=== PATIENT | male | born 1950 | race Caucasian/White ===

== ENCOUNTER 2017-08-23 09:36 | Day surgery (SDC) | payer MEDICARE, BC | END 2017-08-23 12:45 | disposition home or self-care (01) | LOC: ORSCMMR 09:36 | PROVIDERS: Internal Medicine Gastroenterology | PROC: 0DBM8ZX Excision of Descending Colon, Via Natural or Artificial Opening Endoscopic, Diagnostic (ICD-10-PCS; principal; 2017-08-23 11:15) | PROC: 0DBK8ZX Excision of Ascending Colon, Via Natural or Artificial Opening Endoscopic, Diagnostic (ICD-10-PCS; principal; 2017-08-23 11:15) | DX: Z12.11 Encounter for screening for malignant neoplasm of colon (principal); D12.2 Benign neoplasm of ascending colon; D12.4 Benign neoplasm of descending colon; K64.8 Other hemorrhoids; E78.00 Pure hypercholesterolemia, unspecified; I10 Essential (primary) hypertension; E11.9 Type 2 diabetes mellitus without complications; Z79.899 Other long term (current) drug therapy | CPT/HCPCS: 82947; 88305; J7120 ==

== ENCOUNTER → 2020-07-25 | Outpatient (CLI) | payer MEDICARE, BC ==
[~2020-07-25] MED LIST: ACYC400; AMIT25; AMLO10; ASPIR 8181 M1; DOXA2; FINA5; GLIP5; IMIP25; LOSARTAN-HCTZ1 EACH; METF500; PREG75; Simvastatin20 MG; TAMS.4ER
[2020-07-26 09:23] LABS: C DIFFICILE DNA NEGATIVE (Negative)
[2020-08-03 06:11] LABS: NOROVIRUS GI Negative (Negative); NOROVIRUS GII Negative (Negative)
== END | disposition home or self-care (01) ==
LOC: LAB 10:00 → LAB SHORT 10:00 → LAB FUT 07-24 16:05
PROVIDERS: Nurse Practitioner Family
DX: R19.7 Diarrhea, unspecified (principal)
CPT/HCPCS: 87015; 87045; 87046; 87177; 87205; 87206; 87209; 87329; 87425; 87493; 87798; 87899; 88264

== ENCOUNTER 2020-09-20 10:34 | Day surgery (SDC) | payer MEDICARE, BC ==
[~2020-09-20] VITALS: Ht 188 cm; Wt 88.2 kg
[~2020-09-20 10:34] MED LIST changes: -DOXA2; -FINA5; -IMIP25; -PREG75
[2020-09-20] MEDS ORDERED: DOXA2 (11:10)
[2020-09-20] MEDS ORDERED: PREG75 (11:10)
[2020-09-20] MEDS ORDERED: IMIP25 (11:10)
[2020-09-20] MEDS ORDERED: FINA5 (11:10)
--- NOTE | 2020-09-20 14:01 | NUR ---
09/20/20 1401 ROSENDA PRIEST 10ML NS INJECTED TO IDENTIFY AND REMOVE POLYP
== END 2020-09-20 13:06 | disposition home or self-care (01) ==
LOC: ORSCSDS 10:34
PROVIDERS: Internal Medicine Gastroenterology
PROC: 0DBP8ZX Excision of Rectum, Via Natural or Artificial Opening Endoscopic, Diagnostic (ICD-10-PCS; principal; 2020-09-20 12:00)
PROC: 0DBL8ZX Excision of Transverse Colon, Via Natural or Artificial Opening Endoscopic, Diagnostic (ICD-10-PCS; principal; 2020-09-20 12:00)
PROC: 0DBE8ZX Excision of Large Intestine, Via Natural or Artificial Opening Endoscopic, Diagnostic (ICD-10-PCS; principal; 2020-09-20 12:00)
PROC: 0DBK8ZX Excision of Ascending Colon, Via Natural or Artificial Opening Endoscopic, Diagnostic (ICD-10-PCS; principal; 2020-09-20 12:00)
PROC: 0DBN8ZX Excision of Sigmoid Colon, Via Natural or Artificial Opening Endoscopic, Diagnostic (ICD-10-PCS; principal; 2020-09-20 12:00)
PROC: 0DBH8ZX Excision of Cecum, Via Natural or Artificial Opening Endoscopic, Diagnostic (ICD-10-PCS; principal; 2020-09-20 12:00)
DX: R19.7 Diarrhea, unspecified (principal); Z86.010 Personal history of colon polyps; D12.3 Benign neoplasm of transverse colon; D12.2 Benign neoplasm of ascending colon; D12.5 Benign neoplasm of sigmoid colon; D12.0 Benign neoplasm of cecum; K64.1 Second degree hemorrhoids; I10 Essential (primary) hypertension; E11.9 Type 2 diabetes mellitus without complications; N18.9 Chronic kidney disease, unspecified; Z79.82 Long term (current) use of aspirin; C85.90 Non-Hodgkin lymphoma, unspecified, unspecified site; Z79.84 Long term (current) use of oral hypoglycemic drugs; Z79.899 Other long term (current) drug therapy
CPT/HCPCS: 82947; 88305; J2704; J7120

== ENCOUNTER → 2021-04-21 | Outpatient (CLI) | payer MEDICARE, BC ==
[~2021-04-21] MED LIST changes: +DOXA2; +FINA5; +IMIP25; +PREG75
[2021-04-21 19:02] LABS: BASOPHILS ABSOLUTE AUTO 0.03 K/mm3 (0.00-0.23); BASOPHILS PERCENT AUTO 0 % (0-2); EOSINOPHILS ABSOLUTE AUTO 0.08 K/mm3 (0.00-0.68); EOSINOPHILS PERCENT AUTO 1 % (0-6); Hematocrit 43.4 % (37.0-53.0); Hemoglobin 13.7 g/dL (13.5-17.5); IMMATURE GRAN ABSOLUTE AUTO 0.03 K/mm3 (0.00-0.10); IMMATURE GRAN PERCENT AUTO 0 % (0-1); LYMPHOCYTES ABSOLUTE AUTO 0.85 K/mm3 (0.84-5.20); LYMPHOCYTES PERCENT AUTO 12 % (21-46); MONOCYTES ABSOLUTE AUTO 0.53 K/mm3 (0.16-1.47); MONOCYTES PERCENT AUTO 7 % (4-13); Mean Corpuscular HGB Conc 31.6 g/dL (31.5-36.5); Mean Corpuscular Volume 89 fL (80-100); NEUTROPHILS ABSOLUTE AUTO 5.81 K/mm3 (1.96-9.15); NEUTROPHILS PERCENT AUTO 79 % (41-73); Platelet Count 132 K/mm3 (150-400); RDW Coefficient Variation 12.7 % (11.7-14.2); RDW Standard Deviation 40.7 fL (35.1-46.3); White Blood Cell Count 7.33 K/mm3 (4.00-11.30)
[2021-04-21 19:40] LABS: Albumin, Blood 3.5 g/dL (3.4-5.0); Albumin/Globulin Ratio 1.2 (0.8-1.8); Bilirubin, Total 0.6 mg/dL (0.1-1.0); Bun/Creatinine Ratio 18.9 (12.0-20.0); Calcium, Blood 11.2 mg/dL (8.5-10.1); Creatinine, Blood 1.27 mg/dL (0.60-1.20); Globulin, Blood 2.8 g/dL (2.2-4.0); Phosphorus, Blood 2.3 mg/dL (2.5-4.9); Potassium, Blood 4.5 mmol/L (3.5-5.5); Total Protein, Blood 6.3 g/dL (6.4-8.2)
== END | disposition home or self-care (01) ==
LOC: LAB SHORT 18:17 → LAB 18:17
PROVIDERS: Internal Medicine Hematology & Oncology
DX: C82.59 Diffuse follicle center lymphoma, extranodal and solid organ sites (principal)
CPT/HCPCS: 80053; 84100; 85025

== ENCOUNTER 2021-09-18 09:17 | Inpatient (IN) | payer MEDICARE, BC ==
[~2021-09-18] VITALS: Ht 188 cm; Wt 105.1 kg
[~2021-09-18 09:17] MED LIST changes: -AMLO10; +AMLO10 PO; -ASPIR 8181 M1; +ASPIR 8181 M1 PO; -DOXA2; +DOXA2 PO; -FINA5; +FINA5 PO; -GLIP5; +GLIP5 PO; -IMIP25; +IMIP25 PO; -LOSARTAN-HCTZ1 EACH; +LOSARTAN-HCTZ1 EACH PO; -METF500; +METF500 PO; -PREG75; +PREG75 PO; -Simvastatin20 MG; +Simvastatin20 MG PO; -TAMS.4ER; +TAMS.4ER PO
[2021-09-18 10:30] LABS: BASOPHILS ABSOLUTE AUTO 0.08 K/mm3 (0.00-0.23); BASOPHILS PERCENT AUTO 0 % (0-2); Hematocrit 38.1 % (37.0-53.0); Hemoglobin 12.9 g/dL (13.5-17.5); LYMPHOCYTES ABSOLUTE AUTO 0.33 K/mm3 (0.84-5.20); LYMPHOCYTES PERCENT AUTO 2 % (21-46); MONOCYTES ABSOLUTE AUTO 0.66 K/mm3 (0.16-1.47); MONOCYTES PERCENT AUTO 4 % (4-13); Mean Corpuscular HGB 28.7 pg (26.0-34.0); Mean Corpuscular HGB Conc 33.9 g/dL (31.5-36.5); Mean Corpuscular Volume 85 fL (80-100); Mean Platelet Volume 11.5 fL (9.1-12.4); Platelet Count 154 K/mm3 (150-400); RDW Coefficient Variation 14.6 % (11.7-14.2); RDW Standard Deviation 45.7 fL (35.1-46.3); Red Blood Cell Count 4.49 M/mm3 (4.30-5.90); White Blood Cell Count 18.12 K/mm3 (4.00-11.30)
[2021-09-18 10:33] LABS: EOSINOPHILS PERCENT AUTO 0 % (0-6); IMMATURE GRAN ABSOLUTE AUTO 0.13 K/mm3 (0.00-0.10); IMMATURE GRAN PERCENT AUTO 1 % (0-1); NEUTROPHILS ABSOLUTE AUTO 16.92 K/mm3 (1.96-9.15); NEUTROPHILS PERCENT AUTO 94 % (41-73)
[2021-09-18] MEDS ORDERED: HYDCHL25 PO (10:40)
[2021-09-18 10:47] LABS: Albumin, Blood 2.4 g/dL (3.4-5.0); Albumin/Globulin Ratio 0.6 (0.8-1.8); Bilirubin, Total 1.3 mg/dL (0.1-1.0); Bun/Creatinine Ratio 28.9 (12.0-20.0); Calcium, Blood 11.7 mg/dL (8.5-10.1); Creatinine, Blood 1.9 mg/dL (0.60-1.20); Magnesium, Blood 1.8 mg/dL (1.6-2.4); Potassium, Blood 4.1 mmol/L (3.5-5.5); Total Protein, Blood 6.4 g/dL (6.4-8.2)
[2021-09-18 11:37] LABS: Influenza A, PCR NEGATIVE (NEGATIVE); Influenza B, PCR NEGATIVE (NEGATIVE); Resp Syncytial Virus, PCR NEGATIVE (NEGATIVE); SARS-Cov-2 (COVID-19) PCR, MMC NEGATIVE (NEGATIVE)
[2021-09-18 15:37] LABS: Anti-Xa UFH, PHA Monitoring <0.10 IU/mL; International Normalized Ratio 1.09; Prothrombin Time Results 11.4 Sec (9.7-11.5)
[2021-09-18 17:19] LABS: Bun/Creatinine Ratio 29.8 (12.0-20.0); Calcium, Blood 10.5 mg/dL (8.5-10.1); Creatinine, Blood 1.61 mg/dL (0.60-1.20); Phosphorus, Blood 2.2 mg/dL (2.5-4.9); Potassium, Blood 3.6 mmol/L (3.5-5.5)
--- NOTE | 2021-09-18 17:49 | NUR ---
SHIFT SUMMARY PT HAS BEEN SLEEPING OFF AND ON SINCE ADMISSION. PT HAS C/O PAIN TO THE UPPER BACK AND CHEST, NON-RADIATING, DESCRIBED SHARP. PT HAS HAD AN INFREQUENT, NONPRODUCTIVE, HACKING COUGH. PT HAS HAD MINOR IMPROVEMENT TO PAIN WITH REST, REPOSITIONING, AND MEDICATION PER EMAR. PT WAS ABLE TO SIT UP IN BED FOR DINNER. PT IS ABLE TO COMMUNICATE CLEARLY AND EFFECTIVELY AND HAS BEEN COOPERATIVE WITH CARE. HEART RATE HAS COME DOWN TO 90-110 AND DILTIAZEM HAS BEEN TITRATED ACCORDINGLY (SEE EMAR).
[2021-09-18 22:24] LABS: Source, Urine Clean Catch
[2021-09-18 22:27] LABS: Bilirubin, Urine Neg (Neg); Blood, Urine 1+ (Neg); Glucose Qualitative, Urine 2+ (Neg); Ketones, Urine 1+ (Neg); Leukocyte Esterase, Urine Neg (Neg); Nitrite, Urine Neg (Neg); Protein, Urine 2+ (Neg); Specific Gravity, Urine 1.015 (1.003-1.022); Urobilinogen, Urine NORM (Normal)
[2021-09-18 22:32] LABS: Appearance, Urine Clear (Clear); Color, Urine Yellow (P-Yellow)
[2021-09-18 22:34] LABS: Amorphous Mod (0-Heavy); Bacteria Few /hpf; Red Blood Cells, Urine 0-2 /hpf (0-2); Squamous Epithelial Cells Rare /hpf (Few); White Blood Cells, Urine Not Seen /hpf (0-5)
[2021-09-19 05:25] LABS: Hematocrit 35.4 % (37.0-53.0); Hemoglobin 11.5 g/dL (13.5-17.5); Mean Corpuscular HGB 27.8 pg (26.0-34.0); Mean Corpuscular HGB Conc 32.5 g/dL (31.5-36.5); Mean Corpuscular Volume 86 fL (80-100); Mean Platelet Volume 12.1 fL (9.1-12.4); Platelet Count 124 K/mm3 (150-400); RDW Coefficient Variation 14.8 % (11.7-14.2); RDW Standard Deviation 46.7 fL (35.1-46.3); Red Blood Cell Count 4.13 M/mm3 (4.30-5.90); White Blood Cell Count 13.99 K/mm3 (4.00-11.30)
[2021-09-19 06:00] LABS: Albumin, Blood 1.9 g/dL (3.4-5.0); Albumin/Globulin Ratio 0.6 (0.8-1.8); Bilirubin, Total 0.9 mg/dL (0.1-1.0); Bun/Creatinine Ratio 29.7 (12.0-20.0); Calcium, Blood 10.4 mg/dL (8.5-10.1); Creatinine, Blood 1.48 mg/dL (0.60-1.20); Globulin, Blood 3.4 g/dL (2.2-4.0); Potassium, Blood 3.7 mmol/L (3.5-5.5); Total Protein, Blood 5.3 g/dL (6.4-8.2)
--- NOTE | 2021-09-19 06:04 | NUR ---
SHIFT SUMMER PT SLEPT THROUGH MOST OF NIGHT. ORIENTATED X4. PATIENT HAD TEMP OF 101.8, BUT IS NOW AFEBRILE AFTER TYLENOL ADMINISTRATION AND ICEPACKS. RIGHT LUNG SOUNDS ARE CLEAR, WHEEZING IN LUQ AND WHEEZING/DIMINISHED LUNG SOUNDS IN LLQ. PT REPORTED CHEST AND ABDOMEN PAINS WHEN COUGHING, WHICH WAS RELIEVED WITH PRN PAIN MEDICATION. PT WAS RETAINING URINE AND A GUZMAN CATHETER WAS INSERTED PER PROVIDER ORDER. OUTPUT OF 1325ML OBSERVED WITH RELIEF OF ABDOMINAL PAIN STATED BY PT. HEPARIN AND CARDIZEM RUNNING PER PROVIDER ORDER.
[2021-09-19 06:15] LABS: BAND PERCENT MAN 5 % (0-8); BASOPHILS PERCENT MAN 0 % (0-2); EOSINOPHILS PERCENT MAN 0 % (0-6); LYMPHOCYTES ABSOLUTE MAN 0.83 K/mm3 (0.84-5.20); LYMPHOCYTES PERCENT MAN 6 % (21-46); MONOCYTES ABSOLUTE MAN 0.97 K/mm3 (0.16-1.47); MONOCYTES PERCENT MAN 7 % (4-13); NEUTROPHILS ABSOLUTE MAN 12.17 K/mm3 (1.96-9.15); SEG NEUTROPHILS PERCENT MAN 82 % (41-73); TOTAL CELLS COUNTED 100
--- NOTE | 2021-09-19 08:53 | NUR ---
ASSUMED CARE OF PT AT 0700. PT TO VQ SCAN VIA WHEELCHAIR AT 0825, HEPARIN AND CARDIZEM GTTs RUNNING. PT ABLE TO STAND AND PIVOT TO WHEELCHAIR W 1 P ASSIST. 0854: PT RETURNED TO ROOM POST SCAN. GTTs CONTINUE. CALL LIGHT IN REACH WILL CONTINUE TO MONITOR.
--- NOTE | 2021-09-19 10:45 | NUR ---
Spiritual care visit conducted. Patient admits to struggling to "put his thoughts together and to his fears concerning his condition. Because pt is sleepy and not communicating in a way that he feels is his best, I make my visit short. Pt tells me about his Rastafari beliefs and his desire for prayer. I gladly provide prayer. Then pt prays in gratitude for God and His graciousness to him. Pt responds well and shows signs of being encouraged in his breann. I allow pt to return to resting.
--- NOTE | 2021-09-19 12:59 | NUR ---
24HR URINE STARTED AT THIS TIME PER MD ORDERS.
--- NOTE | 2021-09-19 18:15 | NUR ---
PT RESTING COMFORTABLY IN BED T/O SHIFT. VQ SCAN NEGATIVE. VSS. ABX, HEPARIN, CARDIZEM AND IVF RUNNING T/O SHIFT PER EMAR. PT'S HR NOTED TO TREND DOWN TO THE 90-100s RANGE, PO METOPROLOL INCREASED FROM BID TO TID TODAY. PT HAS BEEN FEBIRLE, RESPONDED WELL TO PRN TYLENOL WHEN NEEDED. PT'S SON IN LAW IN TO VISIT HIM TODAY. 24 HR URINE IN PROGRESS PER ORDERS. NO ACUTE EVENTS T/O THE SHIFT, CALL LIGHT IN REACH, WILL CONTINUE TO MONITOR AND GIVE REPORT TO ONCOMING SHIFT RN.
[2021-09-20 04:39] LABS: Anti-Xa UFH, PHA Monitoring 0.25 IU/mL
--- NOTE | 2021-09-20 06:23 | NUR ---
SHIFT SUMMARY [id number] PT ORIENTED X4, SLEEPY BUT AWAKENS TO VOICE. AFIB 90S-140S. CARDIZEM GTT INCREASED TO 15MG/15ML/HR THIS AM DUE TO INCREASE IN HR. LUNGS DIM/COARSE IN LLL. OTHER VSS PER PT TREND. TACHYPNEIC WITH ACTIVITY. COMPLAINTS OF CHRONIC UPPER BACK PAIN. REPOSITIONED AND PRNS GIVEN. GUZMAN TO DD W/ADEQUATE UOP. 24 HOUR URINE COLLECTION IN PLACE. WILL CONTINUE TO MONITOR AND PASS ON TO DAY RN.
[2021-09-20 09:13] LABS: Anion Gap 9 mmol/L (6-16); Blood Urea Nitrogen 40 mg/dL (8-24); Bun/Creatinine Ratio 33.9 (12.0-20.0); CO2, Blood 19 mmol/L (21-32); Chloride, Blood 109 mmol/L (98-108); Creatinine, Blood 1.18 mg/dL (0.60-1.20); Glomerular Filtration Rate >60 (60-); Glucose, Blood 280 mg/dL (70-99); Hematocrit 33.2 % (37.0-53.0); Mean Corpuscular HGB 28.1 pg (26.0-34.0); Mean Corpuscular HGB Conc 33.1 g/dL (31.5-36.5); Mean Corpuscular Volume 85 fL (80-100); Mean Platelet Volume 11.5 fL (9.1-12.4); Platelet Count 146 K/mm3 (150-400); Potassium, Blood 3.7 mmol/L (3.5-5.5); RDW Coefficient Variation 15.2 % (11.7-14.2); RDW Standard Deviation 47.1 fL (35.1-46.3); Red Blood Cell Count 3.92 M/mm3 (4.30-5.90); Sodium, Blood 137 mmol/L (136-145)
[2021-09-20 09:39] LABS: BAND PERCENT MAN 10 % (0-8); BASOPHILS PERCENT MAN 0 % (0-2); EOSINOPHILS PERCENT MAN 0 % (0-6); LYMPHOCYTES ABSOLUTE MAN 0.25 K/mm3 (0.84-5.20); LYMPHOCYTES PERCENT MAN 2 % (21-46); MONOCYTES ABSOLUTE MAN 0.38 K/mm3 (0.16-1.47); MONOCYTES PERCENT MAN 3 % (4-13); NEUTROPHILS ABSOLUTE MAN 12.06 K/mm3 (1.96-9.15); SEG NEUTROPHILS PERCENT MAN 85 % (41-73); TOTAL CELLS COUNTED 100
[2021-09-20 12:19] LABS: Hematocrit 35.1 % (37.0-53.0); Hemoglobin 11.6 g/dL (13.5-17.5); Mean Platelet Volume 11.3 fL (9.1-12.4); Platelet Count 157 K/mm3 (150-400)
--- NOTE | 2021-09-20 14:40 | NUR ---
ASSUMED CARE OF PT AT 0700. DR ADLER NOTIFIED AT THIS TIME OF PT'S HR INCREASING TO 110s-120s. PT IS OFF THE CARDIZEM GTT SINCE THIS AM AFTER HIS HR DROPPED INTO THE 70s FOLLOWING AM DOSE OF PO METOPROLOL. PT IS ALSO REQUESTING BOWEL CARE. DR ADLER STATES SHE WILL PLACE ORDERS.
[2021-09-20 15:07] LABS: Calcium, Urine 8.3 mg/dL (< 17.5); Calcium, Urine Calculation 215.8 mg/24hrs (42.0-353.0)
--- NOTE | 2021-09-20 18:09 | NUR ---
PT AFEBRILE T/O SHIFT. MEDICATIONS GIVEN PER EMAR. PT RESTED MOST OF THE DAY, VISIT FROM FAMILY. OFF CARDIZEM AND HEPARIN GTTS TODAY. PT STARTED ON HIGHER AND LONGER ACTING DOSE OF PO METOPROLOL. 24 HR URINE COMPLETED AND SENT TO LAB PER MD ORDER. CONTINUOUS TELEMETRY/SPO2 MONITOR IN PLACE T/O SHIFT. NO ACUTE CHANGES. CALL LIGHT IN REACH, WILL CONTINUE TO MONITOR AND GIVE REPORT TO ONCOMING SHIFT RN.
[2021-09-21 04:15] LABS: BASOPHILS ABSOLUTE AUTO 0.03 K/mm3 (0.00-0.23); BASOPHILS PERCENT AUTO 0 % (0-2); EOSINOPHILS ABSOLUTE AUTO 0.02 K/mm3 (0.00-0.68); EOSINOPHILS PERCENT AUTO 0 % (0-6); Hematocrit 35.4 % (37.0-53.0); Hemoglobin 11.6 g/dL (13.5-17.5); IMMATURE GRAN ABSOLUTE AUTO 0.25 K/mm3 (0.00-0.10); IMMATURE GRAN PERCENT AUTO 2 % (0-1); LYMPHOCYTES ABSOLUTE AUTO 0.67 K/mm3 (0.84-5.20); LYMPHOCYTES PERCENT AUTO 5 % (21-46); MONOCYTES ABSOLUTE AUTO 1.01 K/mm3 (0.16-1.47); MONOCYTES PERCENT AUTO 7 % (4-13); Mean Corpuscular HGB Conc 32.8 g/dL (31.5-36.5); Mean Corpuscular Volume 85 fL (80-100); Mean Platelet Volume 11.4 fL (9.1-12.4); NEUTROPHILS ABSOLUTE AUTO 12.27 K/mm3 (1.96-9.15); NEUTROPHILS PERCENT AUTO 86 % (41-73); Platelet Count 195 K/mm3 (150-400); RDW Coefficient Variation 15.5 % (11.7-14.2); RDW Standard Deviation 49.1 fL (35.1-46.3); Red Blood Cell Count 4.15 M/mm3 (4.30-5.90); White Blood Cell Count 14.25 K/mm3 (4.00-11.30)
[2021-09-21 04:35] LABS: Anion Gap 8 mmol/L (6-16); Blood Urea Nitrogen 39 mg/dL (8-24); Bun/Creatinine Ratio 34.5 (12.0-20.0); CO2, Blood 23 mmol/L (21-32); Calcium, Blood 10.6 mg/dL (8.5-10.1); Chloride, Blood 109 mmol/L (98-108); Creatinine, Blood 1.13 mg/dL (0.60-1.20); Glomerular Filtration Rate >60 (60-); Glucose, Blood 264 mg/dL (70-99); Potassium, Blood 3.9 mmol/L (3.5-5.5); Sodium, Blood 140 mmol/L (136-145)
--- NOTE | 2021-09-21 06:06 | NUR ---
SHIFT SUMMARY [id number] PT ORIENTED X4 OVERNIGHT. HR INCREASED MID SHIFT TO 130S-170S AND CARDIZEM GTT RESTARTED. INCREASED O2 TO 4L NC. COMPLAINTS OF CHRONIC UPPER BACK PAIN AND PAIN WITH COUGHING. PRNS GIVEN WITH RELIEF. GUZMAN TO DD WITH ADEQUATE OUTPUT. WILL PASS ON TO DAY RN
--- NOTE | 2021-09-21 12:00 | NUR ---
ASSUMED CARE OF PT AT 0700. DR ADLER NOTIFIED OF PT'S HR 110-120s, CONTINUES TO BE IN AFIB. PO CARDIZEM AND METOPROLOL XL GIVEN THIS AM PER MD ORDERS, CARDIZEM GTT OFF AT THIS TIME. DR DALER STATES NOT TO RESTART THE CARDIZEM GTT AT THIS TIME, CONTINUE TO MONITOR HR CLOSELY AND CALL HER AGAIN IF HR CONTINUES TO INCREASE. PT HAS BEEN UP TO RECLINER CHAIR FOR HOURS TODAY, GUZMAN CATHETER REMOVED AND BED BATH PROVIDED. CALL LIGHT IN REACH, WILL CONTINUE TO MONITOR.
--- NOTE | 2021-09-21 17:22 | NUR ---
PT HR CONTINUES TO INCREASE, 130-140s AT REST AND 160-170s WHEN STANDING AT THE SIDE OF THE BED TO USE THE URINAL. PT BACK TO BED, BP 132/68. PT HAS BEEN UNABLE TO VOID SINCE GUZMAN REMOVED. DR ADLER NOTIFIED, NEW ORDERS RECEIVED. NO OTHER ACUTE CHANGES T/O THE SHIFT, CALL LIGHT IN REACH, WILL CONTINUE TO MONITOR AND GIVE REPORT TO ONCOMING SHIFT RN.
[2021-09-22 05:15] LABS: BASOPHILS ABSOLUTE AUTO 0.06 K/mm3 (0.00-0.23); BASOPHILS PERCENT AUTO 0 % (0-2); EOSINOPHILS ABSOLUTE AUTO 0.01 K/mm3 (0.00-0.68); EOSINOPHILS PERCENT AUTO 0 % (0-6); Hematocrit 33.9 % (37.0-53.0); Hemoglobin 11.2 g/dL (13.5-17.5); IMMATURE GRAN ABSOLUTE AUTO 0.38 K/mm3 (0.00-0.10); IMMATURE GRAN PERCENT AUTO 2 % (0-1); LYMPHOCYTES ABSOLUTE AUTO 0.72 K/mm3 (0.84-5.20); LYMPHOCYTES PERCENT AUTO 4 % (21-46); MONOCYTES ABSOLUTE AUTO 0.92 K/mm3 (0.16-1.47); MONOCYTES PERCENT AUTO 5 % (4-13); Mean Corpuscular HGB 28.2 pg (26.0-34.0); Mean Corpuscular Volume 85 fL (80-100); Mean Platelet Volume 11.4 fL (9.1-12.4); NEUTROPHILS ABSOLUTE AUTO 15.38 K/mm3 (1.96-9.15); NEUTROPHILS PERCENT AUTO 88 % (41-73); Platelet Count 248 K/mm3 (150-400); RDW Coefficient Variation 15.5 % (11.7-14.2); RDW Standard Deviation 48.9 fL (35.1-46.3); Red Blood Cell Count 3.97 M/mm3 (4.30-5.90); White Blood Cell Count 17.47 K/mm3 (4.00-11.30)
--- NOTE | 2021-09-22 05:18 | NUR ---
PT REPORTS HAVING A HARD TIME BREATHING RESP ARE AT 24 AND SATS ARE >90'S ON 8L NC. REPORTING PAIN IN BACK AND CHEST 02/07. CALLED DR DAVIS AND OBTAINED AN ORDER FOR BREATHING TREATMENT. ORDER ENTERED.
[2021-09-22 05:36] LABS: Albumin, Blood 1.9 g/dL (3.4-5.0); Albumin/Globulin Ratio 0.6 (0.8-1.8); Bilirubin, Total 1.1 mg/dL (0.1-1.0); Bun/Creatinine Ratio 28.6 (12.0-20.0); Calcium, Blood 10.1 mg/dL (8.5-10.1); Creatinine, Blood 1.33 mg/dL (0.60-1.20); Globulin, Blood 3.3 g/dL (2.2-4.0); Potassium, Blood 3.6 mmol/L (3.5-5.5); Total Protein, Blood 5.2 g/dL (6.4-8.2)
--- NOTE | 2021-09-22 05:59 | NUR ---
SHIFT SUMMARY PT HAS HAD SOME CONFUSION THIS MORNING. HE HAS REPORTED NOT BEING ABLE TO BREATH AND RESP HAVE BEEN 20-24. PT IS NOW ON 8L NC WITH SATS ABOVE 92%. PT REPORTING PAIN 9/10 IN CHEST AND BACK. HE IS ALSO NOT SPEAKING IN FULL SENTENCES BECAUSE HE IS UNABLE TO BREATH. BREATHING TREATMENT WAS ADMINISTERED BY RT AND PT STS HE FEELS BETTER. CARDIAZEM GTT IS NOW AT A RATE OF 10. GUZMAN IN PLACE AND DRAINING TO GRAVITY. CALL LIGHT IS WITHIN REACH.
--- NOTE | 2021-09-22 12:11 | NUR ---
CALL TO PROVIDER TO NOTIFY OF CBG, WILL INFORM GUN BARREL FINISHER. WILL CONTINUE TO MONITOR PATIENT NOT SYMPTOMATIC FROM INCREASED CBG. PROVIDER CALLED BACK INCREASE TO [facility] AND CONTINUE TO MONITOR.
--- NOTE | 2021-09-22 16:29 | NUR ---
Spiritual care visit conducted. Patient tells me about the mental and emotional struggle he is having. He states how exhausted he is in the longevity of his condition. Patient asks for prayer which I gladly provide. We also talk about healthy ways of thinking about and processing how he feels. Patient responds well and and shows signs of greater hope and peace. I will continue to remain available to patient and family.
--- NOTE | 2021-09-22 17:52 | NUR ---
END OF SHIFT: PATIENT HAS BEEN MORE CONFUSED THROUGHOUT THE DAY, ORIENTS MOST OF THE TIME. HAS 1 IV AND 1 POWERGLIDE IN THE JELLY, DUE TO MEDICATIONS NOT BEING TO BE RAN TOGETHER. PATIENT DENIES CHEST PAIN, DOES HAVE RIB PAIN DUE TO COUGH. COUGHING AND RIB PAIN SLOWED WITH THE IV FENTANYL. PATIENT WILL BE HAVING A THORACENTESIS TOMORROW DUE TO LARGE AMOUNT OF FLUID IN LUNG. XERALTO SHOULD BE HELD TONIGHT IF NOT DC'D AND SCD'S PLACED WILL INFORM NIGHT RN. PATIENT HAS BEEN DIURESISING, ALBUMIN, AND LASIX IV. CBG'S HAS BEEN 300'S AND CHANGED TO MEDIUM SLIDING SCALE. FAMILY VISITED AND WANTED TO KNOW WHEN NAVI WAS TOMORROW SO SHE CAN PLAN ON HEARING CONSULTANT AND BE HERE FOR WHEN HE RETURNS. DR ADLER WAS CALLED DUE TO PATIENT MENTATION DECLINING MORE THAN THE MORNING, CONTINUE TO OBSERVE AND MEDICATIONS WERE CHANGED. WILL CONTINUE TO MONITOR UNTIL SHIFT CHANGE.
--- NOTE | 2021-09-22 20:21 | NUR ---
PT ATTEMPTED TO GET OUT OF BED. BED ADELE ALARMING. PT CONFUSED ASKING WHICH ZOO HE WAS IN. WHEN ASKED IF HE KNEW WHERE HE WAS PT STATED "NO." WHEN TOLD HE WAS AT [facility] PT STATED "I KNOW." CALL LIGHT IS WITHIN REACH. BED ALARM ACTIVE.
--- NOTE | 2021-09-23 00:34 | NUR ---
CALLED DR DAVIS REGARDING IV SITE WITH ZOSYN. THIS NURSE NOTED THAT IV IN LEFT UPPER ARM ON 425 AM HOURS WAS RED/BRUISED AFTER RUNNING ZOSYN. THAT IV WAS DC'D DURING DAY SHIFT. TONIGHT WHEN ADMINISTERING ZOSYN AT THE NEW IV SITE THAT IS IN RIGHT UPPER ARM AND PT COMPLAINED OF PINCHING SITE WAS RED AND BRUISING. ZOSYN IMMEDIATELY STOPPED AND REPORTED TO CHARGE AND DOCTOR. NEW ORDERS WERE ENTERED BY DR DAVIS.
--- NOTE | 2021-09-23 04:50 | NUR ---
PT REPORTING CHEST PAIN DESCRIBED "HEART PAIN, COMPRESSING" INTO CHEST AND INTO STOMACH. PAIN DIFFERENT FROM OTHER DESCRIBED T/O SHIFT WHICH WAS CHEST, BACK OR SHOULDER DUE TO COUGH PAIN. CALLED DR DAVIS AND ORDER OF 15MG TORODOL WAS GIVEN.
[2021-09-23 05:28] LABS: BASOPHILS ABSOLUTE AUTO 0.03 K/mm3 (0.00-0.23); BASOPHILS PERCENT AUTO 0 % (0-2); EOSINOPHILS ABSOLUTE AUTO 0.02 K/mm3 (0.00-0.68); EOSINOPHILS PERCENT AUTO 0 % (0-6); Hematocrit 30.4 % (37.0-53.0); Hemoglobin 10.2 g/dL (13.5-17.5); IMMATURE GRAN ABSOLUTE AUTO 0.51 K/mm3 (0.00-0.10); IMMATURE GRAN PERCENT AUTO 3 % (0-1); LYMPHOCYTES ABSOLUTE AUTO 0.75 K/mm3 (0.84-5.20); LYMPHOCYTES PERCENT AUTO 4 % (21-46); MONOCYTES ABSOLUTE AUTO 0.81 K/mm3 (0.16-1.47); MONOCYTES PERCENT AUTO 4 % (4-13); Mean Corpuscular HGB 28.8 pg (26.0-34.0); Mean Corpuscular HGB Conc 33.6 g/dL (31.5-36.5); Mean Corpuscular Volume 86 fL (80-100); Mean Platelet Volume 11.2 fL (9.1-12.4); NEUTROPHILS ABSOLUTE AUTO 16.82 K/mm3 (1.96-9.15); NEUTROPHILS PERCENT AUTO 89 % (41-73); Platelet Count 285 K/mm3 (150-400); RDW Coefficient Variation 15.4 % (11.7-14.2); RDW Standard Deviation 48.6 fL (35.1-46.3); Red Blood Cell Count 3.54 M/mm3 (4.30-5.90); White Blood Cell Count 18.94 K/mm3 (4.00-11.30)
--- NOTE | 2021-09-23 05:45 | NUR ---
SHIFT SUMMARY PT HAS BEEN CONFUSED ALL NIGHT. HE HAS ATTEMPTED TO GET UP OUT OF BED, YELLING OUT AND SEEING PEOPLE IN ROOM WELL TALKING TO SELF. BP WAS ELEVATED THIS AM WHEN PT REPORTED "HEART" PAIN. HE REPORTED THAT HIS HIS HEART HURT AND THAT HE FELT COMPRESSION ON CHEST INTO HIS STOMACH. REPORTED TO BOX ATTACHER AND . PT IS NOW ON 3L NC WITH SATS ABOVE 90%. CARDIZEM GTT HAS REMAINED AT 10. GUZMAN IS IN PLACE AND DRAINING. CALL LIGHT IS WITHIN REACH. BED ALARM ACTIVE. WILL CONTINUE TO MONITOR.
[2021-09-23 06:08] LABS: Albumin, Blood 2.2 g/dL (3.4-5.0); Albumin/Globulin Ratio 0.7 (0.8-1.8); Bilirubin, Total 1.3 mg/dL (0.1-1.0); Calcium, Blood 10.3 mg/dL (8.5-10.1); Creatinine, Blood 1.26 mg/dL (0.60-1.20); Magnesium, Blood 2.2 mg/dL (1.6-2.4); Potassium, Blood 3.4 mmol/L (3.5-5.5); Total Protein, Blood 5.2 g/dL (6.4-8.2)
--- NOTE | 2021-09-23 07:41 | NUR ---
NURSING PCU DAYSHIFT: Assumed care of pt at approx 0700. Sleeping upon entering the room but arouses to verbal stimuli. Confused though cooperative with care at this time and reported to be experiencing mild verbal and auditory hallucinations. Denies any pain during a.m. assessment. Skin is pale and fragile, no noted breakdown. Tele in place, afib w/HR 90's, denies CP/pressure, SBP 140, dependent UE edema w/trace to 1+ BLE edema. L/S dim t/o L lobes, bibasilar fine crackles, occ dry/BIOLOGICAL TECHNICIAN cough, O2 sat mid 90's on 3L NC, denies dyspnea at rest. Abd moderately distended and firm, nontender, BT+, FC w/stat lock in place draining yellow urine. PG and PIV to RUE, diltiazem gtt infusing at 10/hr. Pt denies any current needs this a.m. Bed/safety alarms in use for fall prevention. Currently sitting up in bed eating breakfast. Plan for thoracentesis today, anticoagulants held for anticipated procedure. Call light in reach though frequent monitoring required. Awaiting rounding from PMD, cont to monitor for any changes.
[2021-09-23 10:47] LABS: Automated BF WBC Count 1.496 K/mm3 (0-999); Body Fluid WBC Count 1496 /mm3 (0-999)
[2021-09-23 11:17] LABS: Appearance, Body Fluid Hazy (Clear); Color, Body Fluid Yellow (None-Yellow); RBC Count, Body Fluid 102 /mm3 (0-0)
[2021-09-23 11:25] LABS: Albumin, Body Fluid 1.5 g/dL; Glucose, Body Fluid 103 mg/dL; Protein, Body Fluid 3.3 g/dL
[2021-09-23 11:31] LABS: Lactate Dehydrogenase, Body Fl 2524 U/L
[2021-09-23 11:50] LABS: Total Cell Count, Body Fluid 100
--- NOTE | 2021-09-23 18:06 | NUR ---
NURSING PCU DAYSHIFT SUMMARY: Pt has remained fairly comfortable t/o the shift. Worked w/P.T. this a.m., spent most of the morning OOB in a chair, tolerated well. Thoracentesis completed this a.m. w/300cc removed, returned to room w/no c/o pain, O2 sat mid to upper 90's on 3L, mildly increase HEALTH COUNSELOR cough. Post procedure CXR completed, reviewed by PMD, new d/o received. Pulm consult completed by PMD, plan of care discussed including possible f/u tx of L pleural effusion. Hep gtt started per pharmacy dosing, diltiazem gtt continues to infuse at 10mls/hr. Telephone update provided to family t/o the shift, questions addressed. Though cooperative w/care, pt has experienced increased bouts of confusion and impulsiveness t/o the afternoon. Safety alarms remain in use for fall prevention. C/O R neck stiffness/discomfort this evening, tylenol administered, resting comfortably. No s/s of acute distress at this time, call light in reach though will continue increased rounding. Continue to monitor until rpt given to NOC RN.
--- NOTE | 2021-09-24 05:27 | NUR ---
CAT OPERATOR SUMMARY PT HAS HAD LABILE MENTATION THIS SHIFT HE HAS HAD MOMENTS OF COMPLETE LUCIDITY WHILE OTHER TIMES BEING VERY CONFUSED AND HALLUCINATING. PT HAS BEEN VERY ANXIOUS THIS SHIFT WHICH HAS EXACERBATED HIS DYSPNEA AND BACK PAIN. PT WAS PLACED ON RM AIR AT START OF THE SHIFT AND MAINTAINED O2 SATS >91% BUT AFTER BEING CONFUSED AND EXITING THE BED HIS O2 SATS DROPPED INTO THE LOW 80'S REQUIRING 15L NC TO RECOVER AND 2L NC TO MAINTAIN. PT REMAINED AFEBRILE THIS SHIFT. LS HAVE BEEN WHEEZY BUT DO CLEAR UP WHEN THE PT IS ENCOURAGED TO DEEP BREATH AND COUGH. CARDIZEM DRIP RUNNING ALL SHIFT AT 10MG/HR W HR RUNNING AFIB 85-110'S. WILL REPORT TO ONCOMING RN
[2021-09-24 07:39] LABS: Hemoglobin 9.5 g/dL (13.5-17.5); Mean Platelet Volume 10.9 fL (9.1-12.4); Platelet Count 327 K/mm3 (150-400)
[2021-09-24 08:51] LABS: BASOPHILS ABSOLUTE AUTO 0.04 K/mm3 (0.00-0.23); BASOPHILS PERCENT AUTO 0 % (0-2); EOSINOPHILS ABSOLUTE AUTO 0.05 K/mm3 (0.00-0.68); EOSINOPHILS PERCENT AUTO 0 % (0-6); Hemoglobin 9.5 g/dL (13.5-17.5); IMMATURE GRAN ABSOLUTE AUTO 0.44 K/mm3 (0.00-0.10); IMMATURE GRAN PERCENT AUTO 3 % (0-1); LYMPHOCYTES ABSOLUTE AUTO 0.65 K/mm3 (0.84-5.20); LYMPHOCYTES PERCENT AUTO 4 % (21-46); MONOCYTES ABSOLUTE AUTO 0.76 K/mm3 (0.16-1.47); MONOCYTES PERCENT AUTO 5 % (4-13); Mean Corpuscular HGB 28.4 pg (26.0-34.0); Mean Corpuscular HGB Conc 32.8 g/dL (31.5-36.5); Mean Corpuscular Volume 87 fL (80-100); Mean Platelet Volume 11.5 fL (9.1-12.4); NEUTROPHILS ABSOLUTE AUTO 14.53 K/mm3 (1.96-9.15); NEUTROPHILS PERCENT AUTO 88 % (41-73); Platelet Count 340 K/mm3 (150-400); RDW Coefficient Variation 15.8 % (11.7-14.2); RDW Standard Deviation 49.7 fL (35.1-46.3); Red Blood Cell Count 3.35 M/mm3 (4.30-5.90); White Blood Cell Count 16.47 K/mm3 (4.00-11.30)
[2021-09-24 09:04] LABS: Albumin, Blood 2.2 g/dL (3.4-5.0); Anion Gap 7 mmol/L (6-16); Blood Urea Nitrogen 33 mg/dL (8-24); CO2, Blood 24 mmol/L (21-32); Calcium, Blood 9.8 mg/dL (8.5-10.1); Chloride, Blood 109 mmol/L (98-108); Glomerular Filtration Rate >60 (60-); Glucose, Blood 285 mg/dL (70-99); Phosphorus, Blood 2.1 mg/dL (2.5-4.9); Potassium, Blood 3.7 mmol/L (3.5-5.5); Sodium, Blood 140 mmol/L (136-145)
--- NOTE | 2021-09-24 10:28 | NUR ---
AM NOTE: PATIENT ALERT AND ORIENTED X3-4. INTERMITTENT CONFUSION, SEEMS CLEARER THIS AM COMPARED TO REEL OPERATOR REPORT. PERRLA. DENIES NUMBNESS/TINGLING. WEAK ON FEET. PHYSICAL THERAPY IN THIS AM. PATIENT ONE PERSON ASSIST WITH FWW AND GAIT BELT. ABLE TO AMBULATE TO BATHROOM. ON 2-3L NASAL CANNULA WHEN UP MOVING AROUND. ABLE TO TITRATE TO ROOM AIR AT TIMES WHEN IN BED. NONPRODUCTIVE HARSH/HACKING COUGH. SOB WITH EXERTION. LUNGS SOUNDING CLEAR, AT TIMES WHEEZY AND FINE CRACKLES IN BASES. TELE SHOWING AFIB WITH HR 80-110'S THIS AM. CARDIZEM DRIP CONTINUES TO INFUSED. PLAN TO TITRATE DOWN AND UPDATE DR. TORO. DRIP TITRATED DOWN THIS AM. TELE NOTIFIED. BP STABLE. DENIES CHEST PAIN/PRESSURE. DENIES ABDOMINAL PAIN/NAUSEA. 2 SMALL BOWEL MOVEMENTS THIS AM. GUZMAN CATH REMAINS IN PLACE DRAINING URINE TO GRAVITY. CALL LIGHT IN REACH. FLUID RESTRICTION MAINTAINED. HEPARIN INFUSING. AC BLOOD SUGARS. BED ALARM AND CHAIR ALARM IN PLACE. SLEEPING AT THIS TIME. WILL CONTINUE TO MONITOR. DR. TORO IN THIS AM, NO NEW CHANGES AT THIS TIME. PLAN FOR DR. HOOD TO COME SEE PATIENT LATER THIS AM.
--- NOTE | 2021-09-24 12:55 | NUR ---
UPDATE: CALL PLACED TO DR. OTRO TO UPDATE ON CARDIZEM DRIP AND HR. SINCE 1000 CARDIZEM DOWN TO 5 ML/HR. HR 80-90'S. ORDERS TO TURN CARDIZEM OFF AT 1400 IF PATIENT SUSTAINING HR IN 80'S. WILL CONTINUE TO MONITOR AND ASSESS AT 1400 IF ABLE TO TITRATE CARDIZEM OFF. SLEEPING AT THIS TIME.
--- NOTE | 2021-09-24 13:38 | NUR ---
UPDATE: PATIENT IN SINUS RHYTHM. CALL PLACED TO UPDATE DR. TORO. ORDERS TO STOP HEPARIN AND CARDIZEM DRIP. PLAN FOR DR. TORO TO START PATIENT ON XERALTO. DR. HOOD IN TO SEE PATIENT. NO NEW ORDERS AT THIS TIME. PLAN FOR CHEST XRAY IN AM. DAUGHTER AT BEDSIDE WHEN DR. HOOD IN ROOM. PATIENT SALINE LOCKED AT THIS TIME.
--- NOTE | 2021-09-24 19:33 | NUR ---
SHIFT SUMMARY: PATIENT REMAINS ALERT AND ORIENTED X3. NO EPISODES OF CONFUSION NOTED THIS SHIFT. VERY TIRED, SLEEPING ON AND OFF. UP TO BATHROOM WITH ONE PERSON ASSIST, FWW, AND GAIT BELT. 2 SMALL BOWEL MOVEMENTS TODAY. REMAINS ON ROOM AIR. REMAINS IN SR WITH HR 90'S. DENIES CHEST PAIN/PRESSURE. TOLERATING PO DIET. GUZMAN CATH REMAINS IN PLACE DRAINING TO GRAVITY. USING CALL LIGHT WHEN NEEDED. MEDICATED ONCE WITH TYLENOL. ABLE TO TURN AND MOVE SELF IN BED. UP IN CHAIR X1 TODAY. FAMILY VISITING THROUGHOUT DAY. POWERGLIDE AND PERIPHERAL IV DRESSINGS CHANGED. EDEMA IMPROVING SLIGHTLY IN HANDS. STILL SIGNIFICANT EDEMA IN BILATERAL FOREARMS. DENIES NEEDS AT THIS TIME. REPORTED OFF TO PREM SAUCEDA.
[2021-09-25 04:07] LABS: BASOPHILS ABSOLUTE AUTO 0.05 K/mm3 (0.00-0.23); BASOPHILS PERCENT AUTO 0 % (0-2); EOSINOPHILS ABSOLUTE AUTO 0.06 K/mm3 (0.00-0.68); EOSINOPHILS PERCENT AUTO 0 % (0-6); Hematocrit 29.4 % (37.0-53.0); Hemoglobin 9.7 g/dL (13.5-17.5); IMMATURE GRAN ABSOLUTE AUTO 0.52 K/mm3 (0.00-0.10); IMMATURE GRAN PERCENT AUTO 3 % (0-1); LYMPHOCYTES PERCENT AUTO 4 % (21-46); MONOCYTES ABSOLUTE AUTO 0.81 K/mm3 (0.16-1.47); MONOCYTES PERCENT AUTO 5 % (4-13); Mean Corpuscular HGB 28.2 pg (26.0-34.0); Mean Corpuscular Volume 86 fL (80-100); Mean Platelet Volume 11.1 fL (9.1-12.4); NEUTROPHILS ABSOLUTE AUTO 14.83 K/mm3 (1.96-9.15); NEUTROPHILS PERCENT AUTO 88 % (41-73); Platelet Count 358 K/mm3 (150-400); RDW Coefficient Variation 15.6 % (11.7-14.2); RDW Standard Deviation 48.8 fL (35.1-46.3); Red Blood Cell Count 3.44 M/mm3 (4.30-5.90); White Blood Cell Count 16.87 K/mm3 (4.00-11.30)
[2021-09-25 04:36] LABS: Albumin, Blood 2.2 g/dL (3.4-5.0); Anion Gap 8 mmol/L (6-16); Blood Urea Nitrogen 34 mg/dL (8-24); Bun/Creatinine Ratio 29.6 (12.0-20.0); CO2, Blood 24 mmol/L (21-32); Calcium, Blood 9.8 mg/dL (8.5-10.1); Chloride, Blood 108 mmol/L (98-108); Creatinine, Blood 1.15 mg/dL (0.60-1.20); Glomerular Filtration Rate >60 (60-); Glucose, Blood 309 mg/dL (70-99); Potassium, Blood 3.6 mmol/L (3.5-5.5); Sodium, Blood 140 mmol/L (136-145)
--- NOTE | 2021-09-25 06:01 | NUR ---
SUPERVISOR PLASTERING SUMMARY PT HAS REMAINED ALERT AND ORIENTED THIS SHIFT COMMUNICATING APPROPRIATELY WITH STAFF. PT REMAINED IN SR IN THE 80'S. O2 SATS >90% ON RM AIR HOWEVER THE PT DID NOT AMBULATE THIS SHIFT. VSS AND AFEBRILE. PT STILL HAVING C/O BACK PAIN WHICH HAS BEEN HARD TO RELEIVE. PT ENCOURAGED TO KEEP ARMS ELEVATED ON PILLOWS TO HELP REDUCE HE SWELLING HOWEVER HE THROWS THE PILLOWS ON THE GROUND AFTER A COUPLE HOURS. GUZMAN CATHETER PATENT AND DRAINING DRAK YELLOW URINE, SEE I&O'S FOR DETAILS. PT WAS ABLE TO SLEEP FOR LARGE PART OF THE SHIFT. WILL REPORT TO ONCOMING RN.
--- NOTE | 2021-09-25 10:37 | NUR ---
AM NOTE: PATIENT ALERT AND ORIENTED X4. NO SIGNS OF CONFUSION THIS AM. ABLE TO MOVE ALL EXTREMITIES. STILL WEAK. STRONG PULSES. ON ROOM AIR SATING MID 90'S. AT TIMES NEEDING 2-3L WHEN AMBULATING TO BATHROOM. DRY/HARSH COUGH. DIMINISHED AIR MOVEMENT ON LEFT SIDE. LUNGS SOUNDING DIM. TELE SHOWING SINUS RHYTHM WITH HR 80-90'S. DENIES CHEST PAIN/PRESSURE. BP STABLE. MODERATE EDEMA TO BUE AND BLE, PER PATIENT IMPROVING. DENIES ABDOMINAL PAIN/NAUSEA. GUZMAN CATH IN PLACE DRAINING CLEAR/YELLOW URINE. TOLERATING PO DIET. AC BLOOD SUGARS WITH COVERAGE. L SIDE [facility] SITE WNL. POWERGLIDE AND PERIPHERAL IV SALINE LOCKED AT THIS TIME. REPEAT CHEST XRAY THIS AM. DR. TORO IN TO SEE PATIENT. NO NEW ORDERS AT THIS TIME. PLAN TO WAIT FOR PULM INPUT ON REPEAT CHEST XRAY. CALL LIGHT IN REACH. PATIENT WORKING WITH PHYSICAL THERAPY AT THIS TIME.
--- NOTE | 2021-09-25 12:20 | NUR ---
UPDATE: DR. MACKAY IN TO SEE PATIENT. PLAN FROM CT OF CHEST AND THEN TO PUSH IMAGES TO [facility] AND [facility]. THIS RN CALLED TO CALL AND CONFIRM PUSHING OF IMAGES. DR. MACKAY TO UPDATE DAUGHTER IN LAW [place]. PATIENT STABLE AT THIS TIME. EATING LUNCH. VITAL SIGNS STABLE. DENIES PAIN. SATING WELL ON ROOM AIR. PLAN TO INFUSE ANTIBIOTICS.
--- NOTE | 2021-09-25 14:13 | NUR ---
PATIENT BACK FROM CT AT THIS TIME. CALL PLACED TO IMAGING. IMAGES PUSHED TO [facility] AND [facility]. ANTIBIOTICS INFUSING AT THIS TIME. VITALS STABLE.
--- NOTE | 2021-09-25 17:58 | NUR ---
SHIFT SUMMARY: SEE PREVIOUS NOTES FOR UPDATES. NO ACUTE CHANGES. VITAL SIGNS REMAIN STABLE. ON ROOM AIR. TELE SHOWING SINUS RHYTHM. HARSH/HACKING COUGH CONTINUES, PATIENT USING SUGAR FREE COUGH DROPS NEEDED. HEPARIN DRIP INFUSING. COBRA TRANSFER ORDER IN PLACE. WAITING FOR [place] TRANSFER AT THIS TIME. COBRA PACKET IN PLACE FOR TRANSFER. FAMILY MEMBERS UPDATED. VANCO INFUSED. CALL LIGHT IN REACH. WILL CONTINUE TO MONITOR AND REPORT OFF TO ONCOMING RN.
--- NOTE | 2021-09-25 19:08 | NUR ---
TRANSFER TO TYPE PROOF REPRODUCER PATIENT SOON FOR [facility]. REPORTED OFF TO CISCO RN. PATIENT WILL BE TRANSPORTING WITH PERSONAL BELONGINGS AND HEPARIN DRIP. REPORTED OFF TO ONCMILAD RN.
== END 2021-09-25 20:00 | disposition short-term general hospital (02) | DRG 871 ==
LOC: ER 09:17 → PCU 13:40
PROVIDERS: Family Medicine; Pharmacist; Physician Assistant; ADMIT Internal Medicine
PROC: 3E03329 Introduction of Other Anti-infective into Peripheral Vein, Percutaneous Approach (ICD-10-PCS; 2021-09-18)
PROC: 0W9B3ZZ Drainage of Left Pleural Cavity, Percutaneous Approach (ICD-10-PCS; principal; 2021-09-23)
DX: A41.2 Sepsis due to unspecified staphylococcus (principal); J13 Pneumonia due to Streptococcus pneumoniae; G92.8 Other toxic encephalopathy; N17.9 Acute kidney failure, unspecified; D72.829 Elevated white blood cell count, unspecified; D64.9 Anemia, unspecified; Z20.822 Contact with and (suspected) exposure to COVID-19; T50.2X5A Adverse effect of carbonic-anhydrase inhibitors, benzothiadiazides and other diuretics, initial encounter; E83.39 Other disorders of phosphorus metabolism; I12.9 Hypertensive chronic kidney disease with stage 1 through stage 4 chronic kidney disease, or unspecified chronic kidney disease; E11.22 Type 2 diabetes mellitus with diabetic chronic kidney disease; E83.52 Hypercalcemia; N18.30 Chronic kidney disease, stage 3 unspecified; R65.20 Severe sepsis without septic shock; N40.0 Benign prostatic hyperplasia without lower urinary tract symptoms; I48.91 Unspecified atrial fibrillation; Z79.82 Long term (current) use of aspirin; Z79.84 Long term (current) use of oral hypoglycemic drugs; Z79.899 Other long term (current) drug therapy; Z98.890 Other specified postprocedural states; Z92.21 Personal history of antineoplastic chemotherapy; Z85.72 Personal history of non-Hodgkin lymphomas; Z86.010 Personal history of colon polyps; Z90.49 Acquired absence of other specified parts of digestive tract
CPT/HCPCS: 0241U; 32555; 36415; 51703; 71045; 71250; 71260; 74176; 78580; 80048; 80053; 80069; 81001; 82042; 82140; 82306; 82340; 82570; 82945; 82947; 83605; 83615; 83735; 83970; 84100; 84157; 84443; 84484; 85014; 85018; 85025; 85049; 85520; 85610; 85730; 87040; 87070; 87186; 87205; 89051; 93005; 93010; 93306; 94640; 94664; 94760; 94762; 96365; 96366; 96375; 97110; 97116; 97162; 97530; 99285-25; A9270; A9540; J0295; J0456; J0696; J1644; J1815; J1885; J1940; J2543; J3010; J3370; J3475; J7030; J7040; J7050; J7060; P9041; Q9967

== ENCOUNTER → 2021-10-20 | Outpatient (CLI) | payer MEDICARE, BC ==
[~2021-10-20] MED LIST changes: +HYDCHL25 PO
[2021-10-20 12:19] LABS: BASOPHILS ABSOLUTE AUTO 0.03 K/mm3 (0.00-0.23); BASOPHILS PERCENT AUTO 0 % (0-2); EOSINOPHILS ABSOLUTE AUTO 0.14 K/mm3 (0.00-0.68); EOSINOPHILS PERCENT AUTO 2 % (0-6); Hemoglobin 12.5 g/dL (13.5-17.5); IMMATURE GRAN ABSOLUTE AUTO 0.02 K/mm3 (0.00-0.10); IMMATURE GRAN PERCENT AUTO 0 % (0-1); LYMPHOCYTES ABSOLUTE AUTO 0.88 K/mm3 (0.84-5.20); LYMPHOCYTES PERCENT AUTO 12 % (21-46); MONOCYTES ABSOLUTE AUTO 0.54 K/mm3 (0.16-1.47); MONOCYTES PERCENT AUTO 8 % (4-13); Mean Corpuscular HGB 26.1 pg (26.0-34.0); Mean Corpuscular HGB Conc 29.8 g/dL (31.5-36.5); Mean Corpuscular Volume 88 fL (80-100); Mean Platelet Volume 12.1 fL (9.1-12.4); NEUTROPHILS ABSOLUTE AUTO 5.61 K/mm3 (1.96-9.15); NEUTROPHILS PERCENT AUTO 78 % (41-73); Platelet Count 130 K/mm3 (150-400); RDW Standard Deviation 44.9 fL (35.1-46.3); Red Blood Cell Count 4.79 M/mm3 (4.30-5.90); White Blood Cell Count 7.22 K/mm3 (4.00-11.30)
== END ==
LOC: LAB 09:51 → LAB SHORT 09:51
PROVIDERS: Internal Medicine Hematology & Oncology
DX: C82.59 Diffuse follicle center lymphoma, extranodal and solid organ sites (principal)
CPT/HCPCS: 85025

== ENCOUNTER → 2023-09-29 | Outpatient (CLI) | payer MEDICARE, BC | LOC: LAB 16:18 → LAB SHORT 16:18 | DX: N39.0 Urinary tract infection, site not specified (principal) | CPT/HCPCS: 87086 ==

== ENCOUNTER → 2023-11-12 | Outpatient (CLI) | payer MEDICARE, BC ==
[2023-11-12 13:10] LABS: Creatinine Urine 71.7 mg/dL (27.00-270.00); Microalbumin, Urine Quant. 28.6 mg/L (0.000-20.000); Protein, Urine Quantitative 15.4 mg/dL (0.0-11.9)
[2023-11-19 07:39] LABS: ALBUMIN %,URINE 77.1 %; ALPHA-1 %,URINE 11.4 %; ALPHA-2 %,URINE 2.9 %; BETA GLOBULIN %,URINE 4.2 %; GAMMA GLOBULIN %,URINE 4.4 %; HOURS COLLECTED Random hr; TOTAL VOLUME Random mL
== END ==
LOC: LAB SHORT 09:45 → LAB 09:45
PROVIDERS: Internal Medicine Nephrology
DX: E78.00 Pure hypercholesterolemia, unspecified (principal); E11.22 Type 2 diabetes mellitus with diabetic chronic kidney disease; N18.30 Chronic kidney disease, stage 3 unspecified; D63.1 Anemia in chronic kidney disease; E11.21 Type 2 diabetes mellitus with diabetic nephropathy; N25.81 Secondary hyperparathyroidism of renal origin; E55.9 Vitamin D deficiency, unspecified; R76.9 Abnormal immunological finding in serum, unspecified; R94.5 Abnormal results of liver function studies; R94.6 Abnormal results of thyroid function studies; D51.8 Other vitamin B12 deficiency anemias; D52.8 Other folate deficiency anemias; D50.9 Iron deficiency anemia, unspecified
CPT/HCPCS: 82043; 82570; 84156; 84166; 86335

== ENCOUNTER 2023-12-20 07:49 | Day surgery (SDC) | payer MEDICARE, BC ==
[~2023-12-20] VITALS: Ht 188 cm; Wt 100.7 kg
[~2023-12-20 07:49] MED LIST changes: +Lactated Ringer's 1,000 ML IV ONE; +propofoL 50 ML IV ONE
[2023-12-20] MEDS ORDERED: IMMUNE GLOBULIN (08:15)
[2023-12-20] MEDS ORDERED: IMIPRAMINE HCL (08:15)
[2023-12-20] MEDS ORDERED: METO50 (08:16)
[2023-12-20] MEDS ORDERED: OMEP20ER (08:16)
[2023-12-20] MEDS ORDERED: TELM20 (08:16)
[2023-12-20] MEDS ORDERED: Lactated Ringer's 1,000 ML IV ONE ×3 (09:08→10:16)
[2023-12-20 10:35] VITALS: BP 131/69
--- NOTE | 2023-12-20 10:42 | NUR ---
12/20/23 1042 Codie Maloney PT INFORMED THAT HE MAY RESUME HIS COUMADIN TOMORROW PER ALEX ArauzRN ALSO, PT TO HAVE INR DRAWN ON 12-28-23.
== END 2023-12-20 10:50 | disposition home or self-care (01) ==
LOC: ORSCSDS 07:49
PROVIDERS: Internal Medicine Gastroenterology
PROC: 0DB68ZX Excision of Stomach, Via Natural or Artificial Opening Endoscopic, Diagnostic (ICD-10-PCS; principal; 2023-12-20 09:15)
PROC: 0DBK8ZX Excision of Ascending Colon, Via Natural or Artificial Opening Endoscopic, Diagnostic (ICD-10-PCS; principal; 2023-12-20 09:15)
PROC: 0D758ZZ Dilation of Esophagus, Via Natural or Artificial Opening Endoscopic (ICD-10-PCS; principal; 2023-12-20 09:15)
PROC: 0DBM8ZX Excision of Descending Colon, Via Natural or Artificial Opening Endoscopic, Diagnostic (ICD-10-PCS; principal; 2023-12-20 09:15)
PROC: 0DBH8ZX Excision of Cecum, Via Natural or Artificial Opening Endoscopic, Diagnostic (ICD-10-PCS; principal; 2023-12-20 09:15)
DX: Z12.11 Encounter for screening for malignant neoplasm of colon (principal); Z86.010 Personal history of colon polyps; R13.10 Dysphagia, unspecified; K51.40 Inflammatory polyps of colon without complications; D12.2 Benign neoplasm of ascending colon; D12.0 Benign neoplasm of cecum; K29.70 Gastritis, unspecified, without bleeding; I48.91 Unspecified atrial fibrillation; C85.90 Non-Hodgkin lymphoma, unspecified, unspecified site; I12.9 Hypertensive chronic kidney disease with stage 1 through stage 4 chronic kidney disease, or unspecified chronic kidney disease; E11.22 Type 2 diabetes mellitus with diabetic chronic kidney disease; N18.30 Chronic kidney disease, stage 3 unspecified; Z79.01 Long term (current) use of anticoagulants; Z79.899 Other long term (current) drug therapy
CPT/HCPCS: 82947; 88305; C1726; J2704; J7120